=== PATIENT | female | born 1970 ===

== ENCOUNTER 2022-03-21 12:09 | Emergency (ER) | payer OTHER, SELFPAY ==
[2022-03-21 12:47] VITALS: BP 121/79; PULSE 82; RESP 20; TEMP 37.1; O2SAT 100; BMI 23.3
--- NOTE | 2022-03-21 12:52 | DI.RAD.S_ITS ---
PROCEDURE: XR LUMBAR SPINE MIN 4V INDICATIONS: back pain TECHNIQUE: 5 views of the lumbar spine were acquired, including bilateral oblique views. COMPARISON: None. FINDINGS: Bones: 5 nonrib-bearing vertebrae are present. There is normal bony alignment. No vertebral body compression fractures. No suspicious bony lesions. Soft tissues: Overlying bowel gas pattern is normal. No suspicious soft tissue calcifications. IMPRESSION: No acute fracture. No osseous lesion. If symptoms and/or clinical suspicion for pathology persist, further assessment with repeat, or advanced imaging (e.g., CT, MRI, or bone scan) may be helpful for further assessment. Dictated by: Guera Aguilar M.D. on 03/21/2022 at 13:23 Approved by: Guera Aguilar M.D. on 03/21/2022 at 13:24
--- NOTE | 2022-03-21 13:50 | ED_ITS ---
HPI - Back Pain/Injury <ELOY Lowe - Last Filed: 03/21/22 19:50> General Chief Complaint: Back Pain/Injury Stated Complaint: Back inj a month ago, Pain Time Seen by Provider: 03/21/22 13:49 Source: patient History of Present Illness HPI Narrative: This is a 51-year-old female presents to the emergency department after a low back and cervical spine injury 1 month ago from a fall. She states that she is had ongoing low back and cervical muscle spasm and pain. Endorses radiculopathy she states from her low left side of her back up her spine to her head. Endorses trapezius tenderness and occasional headache. She has had an appointment with her chiropractor and 2 massages, states that she is quite tender and having symptoms of flares of this low back pain intermittently. She denies any weakness but states that she has occasional numbness and tingling in her lower extremities. She denies any groin paresthesia, denies any incontinence, or difficulty ambulating. Her primary care provider is ELENI Josue. She has been taking Tylenol and ibuprofen, states that her pain is still flaring outside of this. States that she tried Excedrin migraine which helped mildly. Related Data Previous Rx's Medication Instructions Recorded levothyroxine 150 mcg tablet 150 mcg PO QAM #90 tabs 07/02/16 (Synthroid) ketorolac 10 mg tablet 10 mg PO TID PRN pain 5 days #20 03/21/22 tabs lidocaine 5 % topical patch 1 patch topical DAILY #15 ea 03/21/22 (Lidoderm) methocarbamol 500 mg tablet 500 mg PO BID-TID PRN muscle 03/21/22 tension/spasm #20 tabs ondansetron 4 mg disintegrating 4 mg PO Q8H #10 tabs 03/21/22 tablet tramadol 50 mg tablet 50 mg PO DAILY PRN pain #10 tabs 03/21/22 Review of Systems <ELOY Lowe - Last Filed: 03/21/22 19:50> Review of Systems Narrative: Review of systems is negative for acute abnormalities unless otherwise noted in HPI Patient History <ELOY Lowe - Last Filed: 03/21/22 19:50> Surgical History Status post delivery Status post knee surgery Social History Smoking Status: Never smoker Smoking Status: Never smoker alcohol intake frequency: holidays/special occasions only Substance Use Type: does not use Exam <ELOY Lowe - Last Filed: 03/21/22 19:50> Narrative Exam Narrative: Reviewed vitals signs and nursing notes. General: cooperative, comfortable, in no acute distress, well groomed MSK: moves all extremities, neurovascularly intact, no weakness, normal tone, no tenderness to palpation of her lumbar or cervical vertebrae, tense paraspinal musculature of her lumbar spine primarily on the left, tension to her left-sided trapezius more so than the right, tender to palpation of these muscles, no range of motion deficits, patient ambulates with a steady gait, without any extremity weakness bilaterally upper and lower extremities. Skin: brisk capillary refill, without pallor or erythema Neuro: normal speech and cognition, A&O x3, ambulatory, clear speech Psych: mental status is grossly normal, congruent mood, normal affect, pleasant and cooperative Initial Vital Signs Initial Vital Signs: Vital Signs Temperature 98.7 F 03/21/22 12:47 Pulse Rate 82 03/21/22 12:47 Respiratory Rate 20 03/21/22 12:47 Blood Pressure 121/79 03/21/22 12:47 Pulse Oximetry 100 03/21/22 12:47 Oxygen Delivery Method 03/21/22 12:47 <Delores Caro DO - Last Filed: 03/22/22 08:22> Initial Vital Signs Initial Vital Signs: Vital Signs Temperature 98.7 F 03/21/22 12:47 Pulse Rate 82 03/21/22 12:47 Respiratory Rate 20 03/21/22 12:47 Blood Pressure 121/79 03/21/22 12:47 Pulse Oximetry 100 03/21/22 12:47 Oxygen Delivery Method 03/21/22 12:47 Course <ELOY Lowe - Last Filed: 03/21/22 19:50> Orders Ordered: Discontinued Medications Hydrocodone Bitart/Acetaminophen (Hydrocodone/Acet 5/325 Tablet) 1 tab PO NOW ONE Stop: 03/21/22 14:02 Last Admin: 03/21/22 14:25 Dose: 1 tab Documented By: CONNOR Ketorolac Tromethamine (Ketorolac 30 Mg/Ml Vial) 15 mg IM NOW ONE Stop: 03/21/22 14:02 Last Admin: 03/21/22 14:23 Dose: 15 mg Documented By: CONNOR Lidocaine (Lidocaine Patch 1 Each Adh..Patch) 1 each TOP NOW ONE Stop: 03/21/22 14:02 Last Admin: 03/21/22 14:25 Dose: 1 each Documented By: CONNOR Lidocaine (Remove Lidocaine Patch) 1 each TOP BEDTIME RUPALI Methocarbamol (Methocarbamol 500 Mg Tablet) 500 mg PO NOW ONE Stop: 03/21/22 14:02 Last Admin: 03/21/22 14:25 Dose: 500 mg Documented By: CONNOR Prednisone (Prednisone 20 Mg Tablet) 40 mg PO NOW ONE Stop: 03/21/22 14:02 Last Admin: 03/21/22 14:24 Dose: 40 mg Documented By: CONNOR Vital Signs Vital signs: Vital Signs - 8 hr 03/21/22 12:47 Temperature 98.7 F Pulse Rate 82 Respiratory Rate 20 Blood Pressure 121/79 Pulse Oximetry 100 Oxygen Delivery Method Room Air <Delores Caro DO - Last Filed: 03/22/22 08:22> Orders Ordered: Discontinued Medications Hydrocodone Bitart/Acetaminophen (Hydrocodone/Acet 5/325 Tablet) 1 tab PO NOW ONE Stop: 03/21/22 14:02 Last Admin: 03/21/22 14:25 Dose: 1 tab Documented By: CONNOR Ketorolac Tromethamine (Ketorolac 30 Mg/Ml Vial) 15 mg IM NOW ONE Stop: 03/21/22 14:02 Last Admin: 03/21/22 14:23 Dose: 15 mg Documented By: CONNOR Lidocaine (Lidocaine Patch 1 Each Adh..Patch) 1 each TOP NOW ONE Stop: 03/21/22 14:02 Last Admin: 03/21/22 14:25 Dose: 1 each Documented By: CONNOR Lidocaine (Remove Lidocaine Patch) 1 each TOP BEDTIME RUPALI Methocarbamol (Methocarbamol 500 Mg Tablet) 500 mg PO NOW ONE Stop: 03/21/22 14:02 Last Admin: 03/21/22 14:25 Dose: 500 mg Documented By: CONNOR Prednisone (Prednisone 20 Mg Tablet) 40 mg PO NOW ONE Stop: 03/21/22 14:02 Last Admin: 03/21/22 14:24 Dose: 40 mg Documented By: CONNOR Vital Signs Vital signs: Vital Signs - 8 hr 03/21/22 12:47 Temperature 98.7 F Pulse Rate 82 Respiratory Rate 20 Blood Pressure 121/79 Pulse Oximetry 100 Oxygen Delivery Method Room Air MDM - Back Pain/Injury <Ysabelfaye Mariscalkaryn, [facility] - Last Filed: 03/21/22 19:50> Lab Data Labs: Lab Results 03/21/22 Range/Units 14:54 Urine Color Yellow Urine Appearance Clear Urine pH 5.5 (4.5-8.0) Ur Specific [place] <=1.005 (1.000-1.035) Urine Protein Negative (Negative) Urine Glucose (UA) Negative (Negative) g/dL Urine Ketones 1+ H (NEGATIVE) Urine Occult Blood Trace-lysed (Negative) Urine Nitrate Negative (Negative) Urine Bilirubin Negative (NEGATIVE) Urine Urobilinogen 0.2 (0.2) E.U./dL Ur Leukocyte Esterase Negative (NEGATIVE) Urine RBC 0-1/hpf (0-5/HPF) Urine WBC 0-1/hpf (0-5/HPF) Urine Bacteria Occasional (0-1) (None) Ur Culture Indicated? Specimen cultured Imaging Data lumbar xr: Radiologist's Impression: PROCEDURE:? XR LUMBAR SPINE MIN 4V ? INDICATIONS:? back pain ? TECHNIQUE:? 5 views of the lumbar spine were acquired, including bilateral oblique views. ? ? COMPARISON:? None. ? FINDINGS:? ? Bones:? 5 nonrib-bearing vertebrae are present.? There is normal bony alignment.? No vertebral body compression fractures.? No suspicious bony lesions.? ? Soft tissues:? Overlying bowel gas pattern is normal.? No suspicious soft tissue calcifications.? ? IMPRESSION:? No acute fracture. No osseous lesion. If symptoms and/or clinical suspicion for pathology persist, further assessment with repeat, or advanced imaging (e.g., CT, MRI, or bone scan) may be helpful for further assessment. ? ? Dictated by: Guera Aguilar M.D. on 03/21/2022 at 13:23 ? ? Approved by: Guera Aguilar M.D. on 03/21/2022 at 13:24 ? CT - cervical spine: Radiologist's Impression: PROCEDURE:? CT CERVICAL SPINE WO CON ? INDICATIONS:? fall 1 mo ago, radiculopathy ? TECHNIQUE:? Noncontrast 3 mm thick sections acquired from the skull base to the T4 level.? Sagittal and coronal reformats were then constructed.? For radiation dose reduction, the following was used:? automated exposure control, adjustment of mA and/or kV according to patient size.? ? COMPARISON:? [facility], CT, CT LUMBAR SPINE WO CON, 03/21/2022, 14:12.? [facility], CR, XR LUMBAR SPINE MIN 4V, 03/21/2022, 13:02. ? FINDINGS:? Image quality:? Excellent.? ? Bones:? No fractures or dislocations.? Visualized superior ribs are intact.? ? Soft tissues:? Prevertebral soft tissues are normal in thickness.? No paravertebral hematomas.? No apical pneumothoraces.? ? ? IMPRESSION:? Negative for fracture. ? If it would be helpful for clinical management decision making in this patient with this given history, please consider a dedicated cervical spine MRI for further evaluation (assuming that there is no contraindication).? Dictated by: Loyd Pal M.D. on 03/21/2022 at 13:31 ? ? Approved by: Loyd Pal M.D. on 03/21/2022 at 13:32 ? ct lumbar spine: Radiologist's Impression: PROCEDURE:? CT LUMBAR SPINE WO CON ? INDICATIONS:? fall 1 mo ago, weakness ? TECHNIQUE:? Noncontrast 3 mm thick sections acquired from the T12 level to the sacrum.? Sagittal and coronal reformats were constructed.? For radiation dose reduction, the following was used:? automated exposure control.? ? COMPARISON:? [facility], CT, CT CERVICAL SPINE WO CON, 03/21/2022, 14:10.? [facility], CR, XR LUMBAR SPINE MIN 4V, 03/21/2022, 13:02. ? FINDINGS:? Image quality:? Excellent.? ? Bones:? No acute vertebral body compression fractures.? No suspicious lytic or blastic bony lesions.? No pars defects.? ? Minimal retrolisthesis is seen at the L4-L5 level. ? T12-L1:? Normal. ? L1-L2:? Mild loss of disc height is seen. Mild generalized disc bulge is seen. There is a superimposed central disc protrusion. ? ? No neural foraminal narrowing is seen.? No significant central canal narrowing is seen ? L2-L3:? There is mild loss of disc height. Mild generalized disc bulge is seen.? No significant neural foraminal or central canal narrowing can be seen.? ? L3-L4:? Normal. ? L4-L5:? The disc height is well preserved. Mild generalized disc bulge is seen.? No significant neural foraminal or central canal narrowing can be seen.? ? L5-S1:? No significant abnormality is seen. ? Soft tissues:? No retroperitoneal masses or hematomas.? Visualized aorta is normal in caliber.? ? ? IMPRESSION:? Mild degenerative changes are seen, without an imaging explanation found for the patient's presenting history. ? If it would be helpful for clinical management decision making in this patient with this given history, please consider a dedicated, scheduled lumbar spine MRI for further evaluation (assuming that there is no contraindication).? ? ? Dictated by: Loyd Pal M.D. on 03/21/2022 at 13:32 ? ? Approved by: Loyd Pal M.D. on 03/21/2022 at 13:35 ? MDM Narrative Medical decision making narrative: Patient presents with 1 month of back pain following a fall, she endorses ongoing radiculopathy with sharp pain and muscle spasms on the left side of her lumbar spine and cervical spine. She denies any lower extremity weakness but states that she does have numbness and tingling to her lower extremities occasionally. She has been afebrile. States she has a history chronic low back pain, flares easily and thinks she has a herniated disc. Her symptoms did not get better over the last month with Tylenol, ibuprofen and Excedrin. Today in the emergency department, she had a lumbar spine x-ray without any acute fracture, osseous lesion, patient then told me that she has ascending radiculopathy symptoms which were concerning. Cervical spine CT and lumbar spine CT were completed without contrast. Cervical spine CT is negative for fracture, lumbar CT shows mild degenerative changes without imaging explanation for the patient's presenting history. There is mild loss of disc height seen from L1-L3 with mild generalized disc bulge no significant neural foraminal or central canal narrowing was seen. Given history and exam, suspect likely musculoskeletal etiology, they are nontoxic appearing with no overt risk factors for epidural hematoma or abscess. No overt evidence of critical cord compression and has a nonfocal near exam. Neurovascularly intact distally, no evidence of infection, peritoneal signs, hypertensive crisis, or abdominal pain with low suspicion for AAA. No weakness, incontinence, neurovascular or sensation changes, no concerning findings for caudal equina syndrome, lumbar fracture, without paresthesia, neuropathic pain, meningeal signs and fever. This could be a herniated disk, paraspinal or other muscle strain, ligamental injury, arthritic, nephrolithiasis/pyelonephritis, epidural abscess, chronic pain, and other diagnosis? considered less likely. Patient's UA is negative for WBCs, or RBCs or leukocyte esterase. Recommend follow-up with her PCP for physical therapy evaluation and advanced imaging as needed. She was given copies of her CTs, encouraged her to use lidocaine patches, ketorolac, she was given prednisone in the emergency department today, methocarbamol and was also prescribed tramadol to use as needed for her pain. <Delores Caro, DO - Last Filed: 03/22/22 08:22> Lab Data Labs: Lab Results 03/21/22 Range/Units 14:54 Urine Color Yellow Urine Appearance Clear Urine pH 5.5 (4.5-8.0) Ur Specific [place] <=1.005 (1.000-1.035) Urine Protein Negative (Negative) Urine Glucose (UA) Negative (Negative) g/dL Urine Ketones 1+ H (NEGATIVE) Urine Occult Blood Trace-lysed (Negative) Urine Nitrate Negative (Negative) Urine Bilirubin Negative (NEGATIVE) Urine Urobilinogen 0.2 (0.2) E.U./dL Ur Leukocyte Esterase Negative (NEGATIVE) Urine RBC 0-1/hpf (0-5/HPF) Urine WBC 0-1/hpf (0-5/HPF) Urine Bacteria Occasional (0-1) (None) Ur Culture Indicated? Specimen cultured Discharge Plan Departure Patient Disposition: Home Clinical Impression: Back pain due to injury, Acute neck pain, Acute back pain with radiculopathy Instructions: Low Back Pain, DI for Cervical Radiculopathy, DI for Muscle Strain, DI for Cervical Muscle Strain, DI for Herniated Disc, DI for Lumbar Radiculopathy Activity Restrictions/Additional Instructions: *You have been diagnosed with radiculopathy which is similar to nerve pain from your low back injury. I suspect you have a cervical muscle strain as well. Please use Toradol every 8 hours with something to eat and drink for inflow patient and pain, you may take Tylenol 975 mg in addition to this every 8 hours. Please use lidocaine patches or topical diclofenac gel as needed for another pain adjunct. Please avoid aggressive stretching or massage until you are evaluated by physical therapy and or [facility]. Please call your primary care provider and ask for a referral to physical therapy and possible MRI if indicated. Please allow yourself to heal, use the muscle relaxers as needed for muscle spasm, return for any new or worsening numbness, tingling, weakness or other changes. Your urine does not show any signs of infection, sorry that this took as long as it did today. Please take the steroid daily for the next 5 days, eat food with your medications to help coat your stomach. I hope you feel better soon, thank you for coming in for evaluation, come back if you have any additional concerns. *What to do: *Please continue to take your regular medications as directed. [x ] New medication prescriptions sent to your pharmacy: [[facility] ] [ ] New medication written as a paper prescription [ ] No new medications given *Please follow up with your primary care provider in 2-3 days, call for an appointment. Let them know you were seen in the Emergency Department and that we asked that you be seen for follow-up. We will electronically transmit a record of today's note if your PCP is in our system *If you do not have a primary care provider please contact [phone] to establish care with one of [facility] primary care providers. *Return to Emergency Department if you should have any new, worsening, or concerning symptoms, such as [fever greater than 101F, chills, worsening pain, persistent vomiting or other bothersome symptoms]. Prescriptions: New ketorolac 10 mg tablet 10 mg PO TID PRN (Reason: pain) 5 Days Qty: 20 0RF methocarbamol 500 mg tablet 500 mg PO BID-TID PRN (Reason: muscle tension/spasm) Qty: 20 0RF lidocaine [Lidoderm] 5 % adhesive patch,medicated 1 patch topical DAILY Qty: 15 0RF Rx Instructions: leave on most painful area for up to 12 hrs tramadol 50 mg tablet 50 mg PO DAILY PRN (Reason: pain) Qty: 10 0RF ondansetron 4 mg tablet,disintegrating 4 mg PO Q8H Qty: 10 0RF No Action levothyroxine [Synthroid] 150 MCG tablet 150 mcg PO QAM Qty: 90 0RF Referrals: [facility] [Provider Group] Eloina Chapman PA-C [Non-Staff] - Visit Report Forms: Patient Portal/API <Delores Caro DO - Last Filed: 03/22/22 08:22> Cosign ED Attending Cosrochelleature Attestation: I was immediately available in the department for consultation. Documentation has been reviewed. I agree with assessment and plan.
--- NOTE | 2022-03-21 14:01 | DI.CT.S_ITS ---
PROCEDURE: CT CERVICAL SPINE WO CON INDICATIONS: fall 1 mo ago, radiculopathy TECHNIQUE: Noncontrast 3 mm thick sections acquired from the skull base to the T4 level. Sagittal and coronal reformats were then constructed. For radiation dose reduction, the following was used: automated exposure control, adjustment of mA and/or kV according to patient size. COMPARISON: [facility], CT, CT LUMBAR SPINE WO CON, 03/21/2022, 14:12. [facility], CR, XR LUMBAR SPINE MIN 4V, 03/21/2022, 13:02. FINDINGS: Image quality: Excellent. Bones: No fractures or dislocations. Visualized superior ribs are intact. Soft tissues: Prevertebral soft tissues are normal in thickness. No paravertebral hematomas. No apical pneumothoraces. IMPRESSION: Negative for fracture. If it would be helpful for clinical management decision making in this patient with this given history, please consider a dedicated cervical spine MRI for further evaluation (assuming that there is no contraindication). Dictated by: Loyd Pal M.D. on 03/21/2022 at 13:31 Approved by: Loyd Pal M.D. on 03/21/2022 at 13:32
--- NOTE | 2022-03-21 14:10 | DI.CT.S_ITS ---
PROCEDURE: CT LUMBAR SPINE WO CON INDICATIONS: fall 1 mo ago, weakness TECHNIQUE: Noncontrast 3 mm thick sections acquired from the T12 level to the sacrum. Sagittal and coronal reformats were constructed. For radiation dose reduction, the following was used: automated exposure control. COMPARISON: [facility], CT, CT CERVICAL SPINE WO CON, 03/21/2022, 14:10. [facility], CR, XR LUMBAR SPINE MIN 4V, 03/21/2022, 13:02. FINDINGS: Image quality: Excellent. Bones: No acute vertebral body compression fractures. No suspicious lytic or blastic bony lesions. No pars defects. Minimal retrolisthesis is seen at the L4-L5 level. T12-L1: Normal. L1-L2: Mild loss of disc height is seen. Mild generalized disc bulge is seen. There is a superimposed central disc protrusion. No neural foraminal narrowing is seen. No significant central canal narrowing is seen L2-L3: There is mild loss of disc height. Mild generalized disc bulge is seen. No significant neural foraminal or central canal narrowing can be seen. L3-L4: Normal. L4-L5: The disc height is well preserved. Mild generalized disc bulge is seen. No significant neural foraminal or central canal narrowing can be seen. L5-S1: No significant abnormality is seen. Soft tissues: No retroperitoneal masses or hematomas. Visualized aorta is normal in caliber. IMPRESSION: Mild degenerative changes are seen, without an imaging explanation found for the patient's presenting history. If it would be helpful for clinical management decision making in this patient with this given history, please consider a dedicated, scheduled lumbar spine MRI for further evaluation (assuming that there is no contraindication). Dictated by: Loyd Pal M.D. on 03/21/2022 at 13:32 Approved by: Loyd Pal M.D. on 03/21/2022 at 13:35
[2022-03-21] MEDS: KETOROLAC 30 MG/ML VIAL 15 MG IM (14:23)
[2022-03-21] MEDS: predniSONE 20 MG TABLET 40 MG PO (14:24)
[2022-03-21] MEDS: HYDROCODONE/ACET 5/325 TABLET 1 TAB PO (14:25)
[2022-03-21] MEDS: methocarbamoL 500 MG TABLET PO (14:25)
[2022-03-21] MEDS: LIDOCAINE PATCH 1 EACH ADH..PATCH TOP (14:25)
[2022-03-21 15:22] LABS: Appearance Urine UA CLEAR; Bilirubin Urine UA NEGATIVE (NEGATIVE); Color Urine UA YELLOW; Glucose Urine UA NEGATIVE (Negative); Ketones Urine UA 1+ (NEGATIVE); Leukocyte Esterase Urine UA NEGATIVE (NEGATIVE); Nitrite Urine UA NEGATIVE (Negative); Occult Blood Urine UA TRACE-LYSED (Negative); Protein Urine UA NEGATIVE (Negative); Specific Gravity Urine UA <=1.005 (1.000-1.035); Urobilinogen Urine UA 0.2 E.U./dL (0.2)
[2022-03-21 15:31] LABS: Bacteria Urine Occasional (0-1); Culture Indicated Urine Specimen Cultured; RBC Urine 0-1/HPF (0-5/HPF); WBC Urine 0-1/HPF (0-5/HPF); pH Urine UA 5.5 (4.5-8.0)
== END 2022-03-21 16:55 | disposition home or self-care (01) ==
PROVIDERS: Emergency Provider Nurse Practitioner Critical Care Medicine
DX: M54.12 Radiculopathy, cervical region (principal); M54.50 Low back pain, unspecified; M54.2 Cervicalgia; S39.92XD Unspecified injury of lower back, subsequent encounter
CPT/HCPCS: 72110; 72125; 72131; 81001; 87086; 96372; 99283; J1885